=== PATIENT | male | born 1965 | race Caucasian/White ===

== ENCOUNTER 2017-09-12 09:00 | Emergency (ER) | payer OTHER ==
[~2017-09-12] VITALS: Ht 172.7 cm; Wt 58.2 kg
[~2017-09-12 09:00] MED LIST: FLEXERIL10 MG PO; NOHOMEMEDS; PERCOCET 5/31 TABLET PO; ZITHROMAX Z-PA250 MG PO
[2017-09-12] MEDS ORDERED: LEVAQUIN750 MG PO (09:33)
[2017-09-12] MEDS ORDERED: PYRIDIUM100 MG PO (09:33)
[2017-09-12 09:34] LABS: HEMATOCRIT 40.9 % (38.0-50.0); HEMOGLOBIN 14.9 G/DL (12.5-16.6); MCH 31.4 PG (29.0-34.0); MCHC 36.4 G/DL (30.0-36.0); MCV 86.1 FL (86-99); PLATELET COUNT 218 K/uL (156-360); RBC DIS.WIDTH-CV 11.7 % (11.8-14.6); RBC DIS.WIDTH-SD 36.8 % (39-53); RED BLOOD COUNT 4.75 M/uL (4.00-5.50); WHITE BLOOD COUNT 21.9 K/uL (4.1-10.2)
[2017-09-12 09:44] LABS: CHLORIDE 103 mEq/L (99-109); POTASSIUM 3.8 mEq/L (3.7-5.4); SODIUM 136 mEq/L (136-147)
[2017-09-12 09:46] LABS: GLUCOSE 107 mg/dL (70-99)
[2017-09-12 09:49] LABS: APPEARANCE SL.HAZY ((CLEAR)); BILIRUBIN NEGATIVE; BLOOD MODERATE; COLOR AMBER ((YELLOW)); GLUCOSE (STRIP) NEGATIVE; KETONES 80; LEUKOCYTES MODERATE; PROTEIN (STRIP) 30; SPECIFIC GRAVITY 1.026 (1.000-1.030)
[2017-09-12 09:50] LABS: CREATININE 0.8 mg/dL (0.6-1.3); GFR ESTIMATE (CALCULATED) > 59 mL/min/ (58.99-99999)
[2017-09-12 09:51] LABS: UREA NITROGEN (BUN) 9 mg/dL (9-23)
[2017-09-12 10:16] LABS: BACTERIA RARE /HPF; CALCIUM OXALATE CRYSTALS 2+ /HPF; EPITHELIAL CELLS NONE SEEN /HPF; MUCUS 2+ /LPF; UCUL ADDED? YES; WHITE BLOOD CELLS TNTC /HPF (0-5)
[2017-09-12 10:18] LABS: NITRITE POSITIVE
[2017-09-12] MEDS ORDERED: DUONEB 2.5-0.5 M3 ML AEROSOL (10:29)
[2017-09-12 10:40] VITALS: BP 121/87
== END 2017-09-12 10:42 | disposition home or self-care (01) ==
LOC: EME 09:00
PROVIDERS: Emergency Medicine Emergency Medical Services
DX: N12 Tubulo-interstitial nephritis, not specified as acute or chronic (principal); J44.1 Chronic obstructive pulmonary disease with (acute) exacerbation; E86.0 Dehydration; R11.0 Nausea; R00.0 Tachycardia, unspecified; Z87.891 Personal history of nicotine dependence
CPT/HCPCS: 80048; 81003; 85027; 87077; 87086; 87186; 93005; 94640; 99281; 99284